=== PATIENT | male | born 1995 | race Caucasian/White ===

== ENCOUNTER 2018-05-30 19:55 | Emergency (ER) | payer OTHER, SELFPAY ==
[2018-05-30 19:56] VITALS: BP 126/71; PULSE 67; RESP 16; TEMP 36.2; O2SAT 96; BMI 22.3
[2018-05-30 20:44] LABS: Absolute Neutrophil Count 3.6 X10^3/uL (2.0-7.7); Basophil# 0.01 X10^3/uL; Basophil% 0.1 % (0-1); Eosinophil# 0.23 X10^3/uL; Eosinophils% 3.2 % (0-5); Hematocrit 42.3 % (40-54); Hemoglobin 14.4 g/dl (13.0-16.5); Lymphocyte % 38.5 % (19-41); Mean Corpuscular Hgb 29.8 pg (27.0-32.0); Mean Corpuscular Volume 87.4 fL (80-94); Mean Platelet Vol. 9.5 fl (6.2-12.0); Monocyte# 0.66 X10^3/uL; Monocyte% 9.1 % (0-10); Neutrophil # 3.56 X10^3/uL (2.7-7.7); Platelet Count 184 K/mm3 (150-450); RBC Distribution Width CV 13.1 % (11.6-14.6); RBC Distribution Width SD 41.7 fl (35.1-43.9); Red Blood Count 4.84 M/mm3 (4.6-6.2); White Blood Count 7.3 K/mm3 (4.4-11.0)
[2018-05-30] MEDS: 0.9% Normal Saline 1,000 ML 125 ML IV (20:44)
[2018-05-30 20:46] LABS: POSITIVE COUNT NO; POSITIVE DIFFERENTIAL NO; POSITIVE MORPHOLOGY NO
[2018-05-30 20:58] LABS: Anion Gap 2 (5-15); BUN 17 mg/dL (7-18); BUN/Creat Ratio 16.2 RATIO (10-20); Calcium,Total 8.3 mg/dL (8.5-10.1); Chloride 105 mmol/L (98-107); Creatinine, Serum 1.05 mg/dL (0.70-1.30); EST Glomerular Filtration Rate 95 mL/min (>60); Est Glom Filt Rate - Afr Amer 114 mL/min (>60); Estimated Creatinine Clearance 114.24 ml/min; Glucose 92 mg/dL (74-106); Potassium 3.6 mmol/L (3.5-5.1); Sodium Level 138 mmol/L (136-145)
[2018-05-30 21:28] VITALS: BP 111/62; BP 125/66; PULSE 74; PULSE 76
--- NOTE | 2018-05-30 22:40 | ED.VISSUMM ---
- ER Visit Summary Date of Service: 05/30/18 Chief Complaint: [Blood in stool] History of Present Illness: The patient is a 23 M [presents the emergency department complaint of blood in his stool for several months. Patient states that he is noticed it may be twice a week. Really there is some blood mixed in with the stool. He denies any fever. He denies any abdominal pain. He denies any black stool. No family history of Crohn's disease or ulcerative colitis. Patient has history of anxiety and depression.] Physical Examination: [HEENT-PERRLA, EOMI. Cranial nerves II through XII grossly intact. TMs clear. Mucous membranes moist. No adenopathy. Cardiovascular-regular rate and rhythm without murmur or ectopy Lungs-clear to auscultation, chest wall stable without crepitus or subcu emphysema Abdomen-normoactive bowel sounds, soft, nontender, no rebound or rigidity, no peritoneal signs. Rectal exam-no hemorrhoids noted. No fissures noted. On digital exam no masses palpated in the rectal vault. Patient had brown stool that was Hemoccult positive Extremities-intact ?4, normal range of motion, normal pulses, atraumatic] Test Results: [Orthostatic vital signs were negative. CBC with differential was normal with normal H&H. Chemistries were unremarkable. Hemoccult was positive.] Emergency Department Course and Treatment: [] Treatment Plan: [Patient will be referred to general surgery for follow-up as a feel patient may require colonoscopy to further evaluate the source of the bleeding. I do not feel any imaging is indicated at this time. ] Disposition: [Discharged to home in stable condition] Impression: [Lower GI hemorrhage-stable This note was generated with [employer] dictation software. It may contain incorrect words, spelling, and punctuation that were not noted in review of the chart prior to signing ED Disposition - Plan for ED Patient: Referrals: Andrea Magana DO [Primary Care Provider] -
--- NOTE | 2018-05-30 22:43 | ED.DEP ---
ED Disposition - Plan for ED Patient: Instructions: ED Hematochezia Stable Referrals: Andrea Magana DO [Primary Care Provider] - Osmani Borges MD [STAFF PHYSICIAN] - 3-5 Days
[2018-05-30 23:09] VITALS: BP 107/55; PULSE 60; RESP 16; O2SAT 97
== END 2018-05-30 23:12 | disposition home or self-care (01) ==
LOC: ED 20:29
PROVIDERS: Emergency Provider Emergency Medicine; Family Provider Family Medicine; PCP Family Medicine
DX: K92.1 Melena (principal); F32.9 Major depressive disorder, single episode, unspecified; F41.9 Anxiety disorder, unspecified; Z79.899 Other long term (current) drug therapy
CPT/HCPCS: 80048; 82274; 85025; 96360; 96361; 99284; J7030; A4216

== ENCOUNTER 2018-06-08 09:39 | Day surgery (SDC) | payer SELFPAY ==
[2018-06-06 15:01] VITALS: BMI 22.3
--- NOTE | 2018-06-06 15:17 | HP_ITS ---
Intake Vital Signs 06/06/18 Body Mass Index (BMI) 22.3 06/06/18 Height 5 ft 8 in 06/06/18 Weight: 160 lb 06/06/18 Body Mass Index (BMI) 24.3 06/06/18 Blood Pressure 136/80 H 06/06/18 Blood Pressure Location Rt brachial 06/06/18 Blood Pressure Position Sitting 06/06/18 Respiratory Rate 20 H 06/06/18 Pulse Rate 58 L 06/06/18 Pulse Source Monitor 06/06/18 Temperature 98.3 F 06/06/18 Temperature Source Oral 06/06/18 Pulse Ox 98 06/06/18 Oxygen Delivery Method room air Intake Visit Reasons: needs egd & c-scope, seen in er Hatchery Attendant Required: No Is patient in pain?: No Allergies No Known Allergies Allergy (Verified 06/06/18 14:56) Medications Cholecalciferol (Vitamin D3) [Vitamin D3] 5,000 unit PO DAILY 05/30/18 [History Confirmed 06/06/18] Mirtazapine [Remeron] 30 mg PO DAILY 05/30/18 [History Confirmed 06/06/18] buspirone 5 mg tablet 10 mg PO DAILY tab 06/06/18 [History Confirmed 06/06/18] fluoxetine 40 mg capsule 40 mg PO DAILY cap 06/06/18 [History Confirmed 06/06/18] PFSH Medical History Rectal bleeding (Acute) Surgical History No history of previous surgery (Acute) Social History Smoking Status: Never smoker alcohol intake: never substance use type: does not use ROS General General: No weight change, appetite, fatigue, colon cancer, breast cancer or weakness HEENT HEENT: No difficulty swallowing, eye injury, eye surgery, swollen glands or hoarseness Endo Endocrine: No thyroid disease, diabetes mellitus, thyroid cancer, Hair loss, heat intolerance or cold intolerance Skin Skin: No rash or changing moles Breast Breast: No left breast lump, right breast lump, nipple discharge, breast pain, abnormal mammogram, abnormal US or breast enlargement Musc Musculoskeletal: No back problems, arthritis, rheumatoid arthritis, gout or joint pain Cardio Cardiovascular: No murmur, pacemaker, heart disease, atrial fibrillation, high blood pressure, heart attack, heart stent, palpitations, shortness of breat with exertion or chest pain Psych Psychiatric: Yes depression and anxiety; no hearing voices Resp Respiratory: No shortness of breath, No sleep apnea, No cough, No COPD, No asthma, No emphysema, No wheezing Gastro Gastrointestinal: No abdominal pain, No nausea or vomiting, No diarrhea, No constipation, No blood in stool, No acid reflux, No hemorrhoids, No ulcers, No gallbladder problem, No black,tarry stools Ernst Hematologic: No blood thinners, No blood disorders, No bleeding, No anemia, No blood clots Neuro Neurologic: No system reviewed and no additional complaints, except as docu, No as per HPI, No abnormal walking, No abnormal hearing, No abnormal movements, No abnormal speech, No behavioral changes, No burning sensations, No confusion, No seizure-like activity, No unsteadiness, No dizziness, No localized weakness, No frequent falls, No headache(s), No lack of coordination, No loss of vision, No memory loss, No numbness, No other visual disturbances, No radiating pain, No restless legs, No sensory deficit, No fainting, No tingling, No tremor(s), No weakness, No other Exam Const General: no acute distress, well developed, well hydrated Orientation: oriented to person, oriented to place, oriented to time [facility] Head: normocephalic, atraumatic Ears: external ears normal Mouth: moist mucous membranes Eyes Sclera: sclerae normal Pupils: normal by confrontation Neck Neck: no lymphadenopathy noted Neck mass: No Thyroid: thyroid normal, symmetrical Chest Chest palpation & inspection: normal inspection of the chest Breast Palpation: No nipple discharge Resp Effort & Inspection: normal respiratory effort Auscultation: clear to auscultation bilaterally Percussion: percussion normal Cardio Rate: regular rate Rhythm: regular rhythm Heart Sounds: no murmurs GI Palpation: soft, no hepatosplenomegaly, no masses, nontender Rectal Exam: other Other: Rectal exam deferred. Extrem General: normal to inspection, no clubbing, cyanosis or edema Assessment & Plan Problems 1. Rectal bleeding K62.5 Plan I have discussed the above with the patient. I have offered the patient colonoscopy for evaluation. I have explained the risks/benefits of the procedure and described the procedure. I have discussed the risks with the patient, including but not limited to: infection, bleeding, perforation of the GI tract requiring emergency surgery, inability to complete the procedure, injury to any internal organs, complications of anesthesia, etc. - the patient understands and agrees to proceed. I have answered all the patient's questions to the patient's satisfaction and the patient has no further questions. The patient has been given instructions for the colon cleansing preparation. I do not think that there is any need to do an upper endoscopy on him at this time I think the information that we will gain by doing his colonoscopy will hopefully just guide us into treating him with rectal suppositories. But given the fact that it has been going on for as long as it has I think it is justified that we do the colonoscopy. Coding Level of Care Code Off vis,new,level 3 Diagnoses Rectal bleeding K62.5
[2018-06-08 10:18] VITALS: BP 125/63; PULSE 69; RESP 16; TEMP 37.3; O2SAT 98; BMI 28.9
[2018-06-08 11:27] VITALS: BP 110/46; BP 125/63; PULSE 53; RESP 16; TEMP 36.7; O2SAT 100
--- NOTE | 2018-06-08 11:28 | OP.ENDO_ITS ---
06/08/2018 Andrea Magana Re : Colonoscopy procedure for Tez Woodsonr [place] This procedure was performed on Friday, June 08, 2018. My impressions and recommendations are as follows: Impressions : - Non-bleeding internal hemorrhoids. - The examination was otherwise normal. - No specimens collected. Recommendations : - Discharge patient to home. - Resume previous diet. - Use hydrocortisone suppository 25 mg 1 per rectum once a day PRN. Pt will call office if he were to develope more bleeding. - No repeat colonoscopy due to age. - Continue present medications. My findings are described in the full procedure note, which is enclosed. If I can be of further assistance, please feel free to contact me at Doctor phone number(s): , Fax: [phone], Work: . Sincerely, MD Osmani Willard MD 06/08/2018 11:28:01 AM This report has been signed electronically.
[2018-06-08 11:32] VITALS: BP 104/47; BP 125/63; PULSE 52; RESP 16; O2SAT 100
[2018-06-08 11:37] VITALS: BP 107/47; BP 125/63; PULSE 54; RESP 16; O2SAT 100
[2018-06-08 11:42] VITALS: BP 107/45; BP 125/63; PULSE 54; RESP 16; TEMP 36.2; O2SAT 100
[2018-06-08 12:01] VITALS: BP 125/63
== END 2018-06-08 12:19 | disposition home or self-care (01) ==
LOC: EN 09:47 → AC 09:47
PROVIDERS: Family Provider Family Medicine; PCP Family Medicine; Referring Provider Family Medicine; Visit Provider Surgery
PROC: 0DJD8ZZ Inspection of Lower Intestinal Tract, Via Natural or Artificial Opening Endoscopic (ICD-10-PCS; CPT 45378; principal; 2018-06-08 10:55)
DX: K64.8 Other hemorrhoids (principal); K62.5 Hemorrhage of anus and rectum; F32.9 Major depressive disorder, single episode, unspecified; Z79.899 Other long term (current) drug therapy
CPT/HCPCS: 45378; J7120; J1610